=== PATIENT | male | born 1950 | race Caucasian/White ===

== ENCOUNTER 2022-07-11 11:31 | Emergency (ER) | payer OTHER, SELFPAY ==
[2022-07-11 11:33] VITALS: BP 125/64; PULSE 75; RESP 20; TEMP 36.8; O2SAT 98; BMI 40.4
--- NOTE | 2022-07-11 11:55 | ED_ITS ---
HPI - Extremity Problem General Chief complaint: Extremity Problem,Nontraumatic Stated complaint: rt wrist pain Time Seen by Provider: 07/11/22 11:53 Source: patient Mode of arrival: Ambulatory History of Present Illness HPI Narrative: 72-year-old male nonsmoker with history of chronic kidney disease and prior gout exacerbation presents with family in the chief complaint of pain on his right wrist. He states he denies any trauma or injury. He denies systemic complaints such as fever or chills nausea or vomiting. He denies headache or blurred vision nor chest pain or shortness of breath. He had been seen evaluated yesterday at the walk-in clinic and they put a enoch around his wrist and sent him here for further evaluation. There is no extension of the redness across the line. Denies any dietary change Related Data Previous Rx's Medication Instructions Recorded oxycodone 5 mg tablet 5 mg PO Q8H PRN pain #14 tabs 07/11/22 prednisone 20 mg tablet 20 mg PO DAILY #5 tabs 07/11/22 Allergies Allergy/AdvReac Type Severity Reaction Status Date / Time No Known Drug Allergies Allergy Verified 07/11/22 11:33 Review of Systems Review of Systems Narrative: GENERAL: Denies chills, fatigue, malaise, fever, sweats. HEENT: Denies sinus pain, ear pain, sore throat, difficulty swallowing, dizziness. RESPIRATORY: Denies dyspnea, cough, wheezing, hemoptysis, sputum. CARDIOVASCULAR: Denies chest pain, palpitations, orthopnea, edema, GASTROINTESTINAL: Denies nausea, vomiting, abdominal pain, diarrhea, constipation, melena. : Denies dysuria, frequency, incontinence, hematuria, urinary retention. MUSCULOSKELETAL: denies weakness, joint pain, or bony pain SKIN: Denies rash, skin lesions, or other NEUROLOGIC: Denies weakness, headache, numbness, change in speech, confusion, seizures, incoordination. PSYCHIATRIC: No concerning psychosocial issues. 12 point review of systems is negative except for those stated above Patient History Social History Smoking Status: Never smoker Smoking Status: Never smoker Substance Use Type: does not use Exam Narrative Exam Narrative: GEN: AOx3 and in mild distress EYES: Pupils are equal, round, and reactive to light and accommodation. Extraoccular muscles are intact bilaterally. There is no subconjunctival hemorrhage or exudate. CHEST: Lungs are clear to auscultation bilaterally and free of wheezes, rales, or rhonchi. Heart rate is regular rhythm, there are no murmurs, clicks, rubs, or gallops. There is no chest wall tenderness. ABD: Abdomen is soft and nontender. There is no guarding or rebound. Bowel sounds are normal in all 4 quadrants. There is no mass or organomegaly. EXT: 3 cm of tender erythematous skin overlying the ulnar styloid, no lymphangitis, no induration or fluctuance SKIN: Warm, pink, and dry. No erythema or rash Initial Vital Signs Initial Vital Signs: Vital Signs Temperature 98.2 F 07/11/22 11:33 Pulse Rate 75 07/11/22 11:33 Respiratory Rate 20 07/11/22 11:33 Blood Pressure 125/64 07/11/22 11:33 Pulse Oximetry 98 07/11/22 11:33 Oxygen Delivery Method Room Air 07/11/22 11:33 Course Orders Ordered: Discontinued Medications Colchicine (Colchicine 0.6 Mg Tablet) 1.2 mg PO NOW ONE Stop: 07/11/22 13:07 Last Admin: 07/11/22 13:38 Dose: 1.2 mg Documented By: ANGIE Consultations Consultation #1: Call to patient's nephrology group with Dr. Irene Ni ok given recent GFR, recommends steroids in lieu of NSAIDS and close follow up Vital Signs Vital signs: Vital Signs - 8 hr 07/11/22 11:33 Temperature 98.2 F Pulse Rate 75 Respiratory Rate 20 Blood Pressure 125/64 Pulse Oximetry 98 Oxygen Delivery Method Room Air MDM - Extremity (Nontraumatic) Lab Data 07/11/22 12:20 Labs: Lab Results 07/11/22 07/11/22 Range/Units 12:20 12:20 WBC 10.5 (4.5-11.0) X10^3/uL RBC 3.58 L (4.5-5.9) X10^6/uL Hgb 11.9 L (13.5-17.5) g/dL Hct 34.7 L (41-53) % MCV 96.9 (80-100) fL MCH 33.2 (26-34) PG MCHC 34.3 (30-36) % RDW 13.5 (11.6-14.8) % Plt Count 152 (150-400) X10^3/uL Neut % (Auto) 67.5 (50-75) % Lymph % (Auto) 20.2 L (25-40) % [place] % (Auto) 9.2 (3-14) % Eos % (Auto) 2.7 (2-4) % Baso % (Auto) 0.4 (0-2) % Neut # (Auto) 7100 H (5577-6096) /uL Lymph # (Auto) 2100 (5136-8862) /uL [place] # (Auto) 1000 H (0-900) /uL Eos # (Auto) 300 (0-450) /uL Baso # (Auto) 0 (0-100) /uL ESR 53 H (0-15) MM/HR Uric Acid 12.6 H* (3.5-8.5) mg/dL C-Reactive Protein 4.0 H (<1.0) mg/dL MDM Narrative Medical decision making narrative: [72] year old patient presents with right wrist pain, redness and swelling in the absence of injury Multiple etiologies for patient's symptoms considered including, but not limited to: [Gout versus cellulitis versus other] Prior Charts reviewed in our EMR Primary Historian: patient Labs reviewed and interpreted by myself: Significantly elevated uric acid and inflammatory markers Consultations: [facility] as noted above Patient's symptoms improved over duration of stay with above-stated therapies. 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 [x ] New medication prescriptions sent to your pharmacy: [[facility] in [place] ] [ ] New medication written as a paper prescription [ ] No new medications given *Please follow up with your primary care provider in 2-3 days, call for an appointment. Let them know you were seen in the Emergency Department and that we ask that you be seen in follow up. We will electronically transmit a record of today's note if your PCP is in our system *If you do not have a primary care provider please contact the [facility] Resource line at [phone]. They will ask some questions about your medical history and help get you set up with a doctor in the community. *Return to Emergency Department if you should have any new, worsening or concerning symptoms, such as [fever greater than 101 F, shaking chills, worsening pain, persistent vomiting or other bothersome symptoms] Prescriptions: New oxycodone 5 mg tablet 5 mg PO Q8H PRN (Reason: pain) Qty: 14 0RF prednisone 20 mg tablet 20 mg PO DAILY Qty: 5 0RF Rx Instructions: administer with food or milk Stand Alone Forms: Patient Portal/API
[2022-07-11 12:30] LABS: Add Manual Diff / Slide Review NO; Basophils Absolute Auto 0 /uL (0-100); Basophils Percent Auto 0.4 % (0-2); Eosinophils Absolute Auto 300 /uL (0-450); Eosinophils Percent Auto 2.7 % (2-4); Hematocrit 34.7 % (41-53); Hemoglobin 11.9 g/dL (13.5-17.5); Lymphocytes Absolute Auto 2100 /uL (1100-4500); Lymphocytes Percent Auto 20.2 % (25-40); Mean Corpuscular HGB Conc 34.3 % (30-36); Mean Corpuscular Hemoglobin 33.2 PG (26-34); Mean Corpuscular Volume 96.9 fL (80-100); Monocytes Absolute Auto 1000 /uL (0-900); Monocytes Percent Auto 9.2 % (3-14); Neutrophils Absolute Auto 7100 /uL (1500-7000); Neutrophils Percent Auto 67.5 % (50-75); Platelet Count 152 X10^3/uL (150-400); Red Blood Cell Count 3.58 X10^6/uL (4.5-5.9); Red Cell Distribution Width 13.5 % (11.6-14.8); White Blood Cell Count 10.5 X10^3/uL (4.5-11.0)
[2022-07-11 13:01] LABS: Uric Acid 12.6 mg/dL (3.5-8.5)
[2022-07-11 13:09] LABS: Erythrocyte Sedimentation Rate 53 MM/HR (0-15)
[2022-07-11 13:22] VITALS: PULSE 87
--- NOTE | 2022-07-11 13:25 | PC.NURSE ---
Provider ordered 1.2mg colchicine. Provider ordered this RN to hold medication until provider is able to consult patient registered occupational therapist.
[2022-07-11] MEDS: COLCHICINE 0.6 MG TABLET 1.2 MG PO (13:38)
[2022-07-11 13:46] VITALS: BP 134/64; PULSE 87; RESP 19; O2SAT 97
== END 2022-07-11 13:46 | disposition home or self-care (01) ==
PROVIDERS: Emergency Provider Emergency Medicine
DX: M10.9 Gout, unspecified (principal)
CPT/HCPCS: 36415; 84550; 85025; 85651; 86140; 99283

== ENCOUNTER 2023-01-25 13:25 | Emergency (ER) | payer OTHER, SELFPAY ==
[2023-01-25] VITALS (14 sets, daily range): BP systolic 128–157; BP diastolic 55–76; PULSE 63–91; RESP 18–22; TEMP 36.2; O2SAT 96–100; BMI 39.6
[2023-01-25 16:30] LABS: Bacteria Urine Occasional (0-1); Culture Indicated Urine Specimen Cultured; RBC Urine 10-30/HPF (0-5/HPF); Squamous Epithelial Cell Urine 5-10 /HPF (0-5/HPF); WBC Urine 5-10/HPF (0-5/HPF)
[2023-01-25] MEDS: ONDANSETRON 4 MG/2 ML INJ IV (16:33)
[2023-01-25] MEDS: MORPHINE 4 MG/ML INJ IV (16:33)
[2023-01-25 17:03] LABS: INR 1.2 (0.9-1.3); Prothrombin Time 13.6 SECONDS (9.4-12.5)
[2023-01-25 17:07] LABS: Alanine Aminotransferase 16 IU/L (<50); Alkaline Phosphatase 183 U/L (38-126); Aspartate Aminotransferase 31 IU/L (17-59); BUN Creatinine Ratio 16.1 (6-22); Bilirubin Total 0.9 mg/dL (0.2-1.3); Blood Urea Nitrogen 33 mg/dL (9-20); Calcium 9.4 mg/dL (8.4-10.2); Carbon Dioxide 21 mmol/L (22-32); Chloride 110 mmol/L (98-107); Estimated Glomerular Filt Rate 34 mL/min (>60); Glucose 99 mg/dL (80-110); HEMOLYSIS 24 (0-50); Lipase 183 U/L (23-300); Potassium 4.4 mmol/L (3.4-5.1); Sodium 139 mmol/L (137-145)
[2023-01-25 17:20] LABS: Add Manual Diff / Slide Review NO; Basophils Absolute Auto 100 /uL (0-100); Basophils Percent Auto 0.7 % (0-2); Eosinophils Absolute Auto 300 /uL (0-450); Eosinophils Percent Auto 2.8 % (2-4); Hematocrit 36.7 % (41-53); Hemoglobin 12.6 g/dL (13.5-17.5); Lymphocytes Absolute Auto 2500 /uL (1100-4500); Lymphocytes Percent Auto 25.2 % (25-40); Mean Corpuscular HGB Conc 34.3 % (30-36); Mean Corpuscular Volume 101.9 fL (80-100); Monocytes Absolute Auto 600 /uL (0-900); Monocytes Percent Auto 5.9 % (3-14); Neutrophils Absolute Auto 6500 /uL (1500-7000); Neutrophils Percent Auto 65.4 % (50-75); Platelet Count 150 X10^3/uL (150-400); Red Cell Distribution Width 15.1 % (11.6-14.8); White Blood Cell Count 9.9 X10^3/uL (4.5-11.0)
--- NOTE | 2023-01-25 18:30 | PC.NURSE ---
This RN continues to update patient and family. This RN frequently checking on patient. Patient reports no pain when in the room, but pain that is pissing razor blades while voiding. Call light within reach and encouraged to use for any needs or concerns. Provider made aware.
--- NOTE | 2023-01-25 19:08 | ED.MALEGU ---
HPI - Male Genitourinary General Chief complaint: Urogenital-Male Stated complaint: urinary blockage Time Seen by Provider: 01/25/23 17:44 Source: patient Mode of arrival: Ambulatory History of Present Illness HPI Narrative: 72-year-old male who is uncircumcised and being seen by a urologist at [facility] in [place] for phimosis. He is here today because he is had difficulty voiding and dysuria today. Onset was today. He has been able to void spontaneously a little bit but he says it is a ?dribble?. Postvoid residual is over 200 cc but less than 300. He is not had fevers flank pain or vomiting. He is not having abdominal pain. Has a history of chronic kidney disease and liver failure. Related Data Previous Rx's Medication Instructions Recorded oxycodone 5 mg tablet 5 mg PO Q8H PRN pain #14 tabs 07/11/22 prednisone 20 mg tablet 20 mg PO DAILY #5 tabs 07/11/22 cefdinir 300 mg capsule 300 mg PO BID #14 caps 01/25/23 Allergies Allergy/AdvReac Type Severity Reaction Status Date / Time No Known Drug Allergies Allergy Verified 01/25/23 16:11 Patient History Social History Smoking Status: Never smoker Smoking Status: Never smoker Substance Use Type: does not use Exam Initial Vital Signs Initial Vital Signs: Vital Signs Temperature 97.2 F L 01/25/23 13:30 Pulse Rate 88 01/25/23 13:30 Respiratory Rate 22 01/25/23 13:30 Blood Pressure 133/76 01/25/23 13:30 Pulse Oximetry 98 01/25/23 13:30 Oxygen Delivery Method Room Air 01/25/23 13:30 Const General: No acute distress Neck Neck: supple Resp Effort & Inspection: normal respiratory effort Auscultation: clear to auscultation bilaterally Cardio Rate: regular rate Rhythm: regular rhythm Heart Sounds: S1 normal and S2 normal GI Palpation: soft and No tender Auscultation: normal bowel sounds Other: Uncircumcised male genitalia, he has a non retractable foreskin, the area around the meatus is erythematous, there is some tenderness there it does not extend beyond the tip of the foreskin. Bladder is not palpable on exam Skin General: no rashes or lesions noted Neuro General: patient alert and patient oriented x3 Course Orders Ordered: ED Orders 01/25/23 16:26 Complete Blood Count AUTO DIFF Stat Comprehensive Metabolic Panel Stat Lipase Stat Prothrombin Time INR Stat Discontinued Medications Ceftriaxone Sodium 2,000 mg/ (Sodium Chloride) 100 mls @ 200 mls/hr IV NOW ONE Stop: 01/25/23 19:08 Last Infusion: 01/25/23 19:56 Dose: Infused Documented By: Admin: 01/25/23 19:15 Dose: 200 mls/hr Documented By: MORGAN Morphine Sulfate (Morphine 4 Mg/Ml Inj) 4 mg IV NOW ONE Stop: 01/25/23 16:07 Last Admin: 01/25/23 16:33 Dose: 4 mg Documented By: SB Ondansetron HCl (Ondansetron 4 Mg/2 Ml Inj) 4 mg IV NOW ONE Stop: 01/25/23 16:12 Last Admin: 01/25/23 16:33 Dose: 4 mg Documented By: MORGAN Consultations Consultation #1: D/W Last urologist, Dr Cortez - treat UTI and follow up with urology as outpatient. 232 PVR not true retention Vital Signs Vital signs: Vital Signs - 8 hr 01/25/23 17:00 01/25/23 17:00 01/25/23 17:30 Pulse Rate 63 64 Respiratory Rate Blood Pressure 140/71 Pulse Oximetry 99 98 Oxygen Delivery Method 01/25/23 17:30 01/25/23 18:00 01/25/23 18:00 Pulse Rate 66 Respiratory Rate Blood Pressure 148/70 H 154/72 H Pulse Oximetry 96 Oxygen Delivery Method 01/25/23 18:30 01/25/23 18:31 01/25/23 18:31 Pulse Rate 66 65 Respiratory Rate 18 Blood Pressure 157/74 H Pulse Oximetry 97 97 Oxygen Delivery Method Room Air 01/25/23 18:33 01/25/23 18:33 01/25/23 19:04 Pulse Rate 67 73 Respiratory Rate Blood Pressure 129/63 Pulse Oximetry 98 98 Oxygen Delivery Method 01/25/23 19:24 01/25/23 19:24 01/25/23 19:30 Pulse Rate 68 Respiratory Rate Blood Pressure 131/62 130/55 L Pulse Oximetry 98 Oxygen Delivery Method 01/25/23 19:30 01/25/23 20:00 01/25/23 20:00 Pulse Rate 69 70 Respiratory Rate Blood Pressure 141/72 H Pulse Oximetry 98 98 Oxygen Delivery Method MDM - Male Genitourinary Lab Data Lab results narrative: CMP is remarkable for creatinine of 2.05. Understanding is some chronic kidney disease. This is likely baseline. CBC with diff is unremarkable. Urinalysis positive leukocyte esterase with pyuria other micro. 01/25/23 16:26 01/25/23 16:26 Labs: Lab Results 01/25/23 01/25/23 Range/Units 14:36 16:26 WBC 9.9 (4.5-11.0) X10^3/uL RBC 3.60 L (4.5-5.9) X10^6/uL Hgb 12.6 L (13.5-17.5) g/dL Hct 36.7 L (41-53) % MCV 101.9 H (80-100) fL MCH 35.0 H (26-34) PG MCHC 34.3 (30-36) % RDW 15.1 H (11.6-14.8) % Plt Count 150 (150-400) X10^3/uL Neut % (Auto) 65.4 (50-75) % Lymph % (Auto) 25.2 (25-40) % [place] % (Auto) 5.9 (3-14) % Eos % (Auto) 2.8 (2-4) % Baso % (Auto) 0.7 (0-2) % Neut # (Auto) 6500 (8610-6985) /uL Lymph # (Auto) 2500 (9413-5003) /uL [place] # (Auto) 600 (0-900) /uL Eos # (Auto) 300 (0-450) /uL Baso # (Auto) 100 (0-100) /uL PT 13.6 H (9.4-12.5) SECONDS INR 1.2 (0.9-1.3) Sodium 139 (137-145) mmol/L Potassium 4.4 (3.4-5.1) mmol/L Chloride 110 H (98-107) mmol/L Carbon Dioxide 21 L (22-32) mmol/L BUN 33 H (9-20) mg/dL Creatinine 2.05 H (0.66-1.25) mg/dL Estimated GFR 34 L (>60) mL/min BUN/Creatinine Ratio 16.1 (6-22) Glucose 99 (80-110) mg/dL Calcium 9.4 (8.4-10.2) mg/dL Total Bilirubin 0.9 (0.2-1.3) mg/dL AST 31 (17-59) IU/L ALT 16 (<50) IU/L Alkaline Phosphatase 183 H (38-126) U/L Total Protein 8.0 (6.3-8.2) g/dL Albumin 4.0 (3.5-5.0) g/dL Globulin 4.0 (1.7-4.1) g/dL Albumin/Globulin Ratio 1.0 (1.0-2.8) Lipase 183 (23-300) U/L Urine RBC 10-30/hpf H (0-5/HPF) Urine WBC 5-10/hpf H (0-5/HPF) Ur Squamous Epith Cells 5-10 /hpf H (0-5/HPF) Urine Bacteria Occasional (0-1) (None) Ur Culture Indicated? Specimen cultured Urine Dip Bedside Urine Glucose Negative Bedside Urine Bilirubin - Negative Bedside Urine Ketone - Negative Urine Specific [place] 1.015 Bedside Urine Occult Blood +++ Bedside Urine pH 6.0 Bedside Urine Protein - Negative Bedside Urine Urobilinogen - Negative Bedside Urine Nitrite - Negative Bedside Urine Leukocytes ++ 125 Esterase MDM Narrative Medical decision making narrative: 72-year-old male with phimosis presenting with dysuria. He is having some difficulty urinating but is not truly retaining urine and is able to get urine drainage past his phimosis. He does not appear to be systemically ill at present. After discussion with his urologist, we put him on antibiotics including a dose of ceftriaxone here as well as a prescription for Omnicef. He is follow up with his urologist soon. Indications for return to the ED are reviewed Discharge Plan Departure Patient Disposition: Home Clinical Impression: Urinary tract infection Qualifiers: Urinary tract infection type: acute cystitis Hematuria presence: with hematuria Qualified Code(s): N30.01 - Acute cystitis with hematuria Instructions: DI for Urinary Tract Infection (UTI) Activity Restrictions/Additional Instructions: Take the prescribed antibiotics. Get adequate fluids. Follow up soon with your urologist. Return to the emergency department if you are having fevers vomiting flank pain or other acute symptoms. Prescriptions: New cefdinir 300 mg capsule 300 mg PO BID Qty: 14 0RF No Action oxycodone 5 mg tablet 5 mg PO Q8H PRN (Reason: pain) Qty: 14 0RF prednisone 20 mg tablet 20 mg PO DAILY Qty: 5 0RF Rx Instructions: administer with food or milk Stand Alone Forms: Patient Portal/API
[2023-01-25] MEDS: cefTRIAXone 2,000 MG in SODIUM CHLORIDE 0.9% 100 ML 200 MG IV (19:15)
== END 2023-01-25 20:13 | disposition home or self-care (01) ==
PROVIDERS: Emergency Medicine; Emergency Provider Emergency Medicine
DX: N30.01 Acute cystitis with hematuria (principal)
CPT/HCPCS: 36415; 51798; 80053; 81003; 81015; 83690; 85025; 85610; 87077; 87086; 96365; 96375; 99284; 99285; J0696; J2270; J2405